=== PATIENT | male | born 1985 | race Caucasian/White ===

== ENCOUNTER 2023-02-16 14:23 | Emergency (ER) | payer SELFPAY ==
[~2023-02-16] VITALS: Ht 182.9 cm; Wt 75.0 kg
[2023-02-16 14:28] VITALS: BP 126/85
[2023-02-16 14:31] VITALS: BP 126/85
[2023-02-16] MEDS ORDERED: FLOXIN OTIC0.3 % AS (14:52)
[2023-02-16] MEDS ORDERED: ZPAK PO (14:52)
[2023-02-16 15:07] VITALS: BP 126/85
== END 2023-02-16 15:13 | disposition home or self-care (01) | DRG 156 ==
LOC: ED 14:23
DX: H60.92 Unspecified otitis externa, left ear (principal); H66.92 Otitis media, unspecified, left ear; E11.9 Type 2 diabetes mellitus without complications